=== PATIENT | male | born 1980 | race Caucasian/White ===

== ENCOUNTER → 2017-01-25 | Outpatient (CLI) | payer BC ==
[2014-02-17 16:45] VITALS: BP 156/100
--- NOTE | 2017-01-25 12:08 | RAD ---
Chest radiograph 01/25/2017 1:22 PM Indication: Positive tuberculosis skin test Comparison: None available Technique: PA and lateral views of the chest are provided. Findings: Cardiomediastinal silhouette is within normal limits. No pleural effusions, pulmonary vascular congestion or pneumothorax. The lungs are clear. Osseous structures are normal. Impression: No acute cardiopulmonary process.
== END | disposition home or self-care (01) ==
LOC: RAD 11:06
PROVIDERS: ATTEND Nurse Practitioner Family
DX: R76.11 Nonspecific reaction to tuberculin skin test without active tuberculosis (principal)
CPT/HCPCS: 71020

== ENCOUNTER 2017-12-21 14:38 | Emergency (ER) | payer BC ==
[2014-02-17 16:45] VITALS: BP 156/100
[~2017-12-21] VITALS: Ht 180.3 cm; Wt 99.8 kg
[2017-12-21] MEDS ORDERED: HYDROcodone/APAP 5/325MG 1 TAB TABLET PO ONE (14:45)
[2017-12-21] MEDS ORDERED: CEPHALEXIN 250 MG CAPSULE PO ONE (14:45)
[2017-12-21] MEDS ORDERED: DIPHTH,PERTUSS(ACELL),TET TOX 0.5 ML DISP.SYRIN. VAX IM ONE (14:45)
[2017-12-21] MEDS ORDERED: BUPIVAC MPF-EPI 0.5%-1:200000 30 ML VIAL. INJ ONE (14:45)
--- NOTE | 2017-12-21 15:03 | RAD ---
Left little finger, 3 views, 12/21/2017: HISTORY: Amputation type injury The soft tissues at the tip of the index finger have been amputated. A small portion of the terminal tuft of the distal phalanx is also absent. No other fracture or dislocation is evident. IMPRESSION: Amputation injury at the tip of the index finger involving a portion of the terminal tuft. Electronically signed by: Tor Gómez MD (12/21/2017 2:59 PM) [facility]
[2017-12-21] MEDS ORDERED: TRAM50TA PO (15:39)
[2017-12-21] MEDS ORDERED: CEPH-264 PO (15:39)
--- NOTE | 2017-12-21 15:39 | PHYS DOC ---
Past History Past Medical History: Hypertension Past Surgical History: No Surgical History Alcohol Use: None Drug Use: None Adult General Chief Complaint Chief Complaint: FINGER INJURY HPI HPI Patient is a [age] year old [sex] who presents with [] Review of Systems Review of Systems Constitutional: Denies fever or chills [] Eyes: Denies change in visual acuity, redness, or eye pain [] HENT: Denies nasal congestion or sore throat [] Respiratory: Denies cough or shortness of breath [] Cardiovascular: No additional information not addressed in HPI [] GI: Denies abdominal pain, nausea, vomiting, bloody stools or diarrhea [] : Denies dysuria or hematuria [] Musculoskeletal: Denies back pain or joint pain [] Integument: Denies rash or skin lesions [] Neurologic: Denies headache, focal weakness or sensory changes [] Endocrine: Denies polyuria or polydipsia [] All other systems were reviewed and found to be within normal limits, except as documented in this note. Current Medications Current Medications Current Medications Medications (Trade) Dose Ordered Sig/Anmol Start Time Stop Time Status Last Admin Dose Admin Acetaminophen/ Hydrocodone Bitart (Lortab 5/325) 1 tab 1X ONCE 12/21/17 14:45 12/21/17 14:48 DC Bacitracin (Bacitracin Topical Pkt) 1 pkt DAILY 12/22/17 09:00 Bupivacaine HCl/ Epinephrine Bitart (Sensorcain-Mpf Epi 0.5%-1:[id number]) 30 ml 1X ONCE 12/21/17 14:45 12/21/17 14:46 DC 12/21/17 14:45 30 ML Cephalexin HCl (Keflex) 500 mg 1X ONCE 12/21/17 14:45 12/21/17 14:46 DC 12/21/17 14:58 500 MG Diphtheria/ Tetanus/Acell Pertussis (Boostrix) 0.5 ml ONCE ONCE 12/21/17 14:45 12/21/17 14:46 DC 12/21/17 15:02 0.5 ML Allergies Allergies Allergies Coded Allergies Type Severity Reaction Last Updated Verified No Known Drug Allergies 02/17/14 No Physical Exam Physical Exam Constitutional: Well developed, well nourished, no acute distress, non-toxic appearance. [] HENT: Normocephalic, atraumatic, bilateral external ears normal, oropharynx moist, no oral exudates, nose normal. [] Eyes: PERRLA, EOMI, conjunctiva normal, no discharge. [] Neck: Normal range of motion, no tenderness, supple, no stridor. [] Cardiovascular:Heart rate regular rhythm, no murmur [] Lungs & Thorax: Bilateral breath sounds clear to auscultation [] Abdomen: Bowel sounds normal, soft, no tenderness, no masses, no pulsatile masses. [] Skin: Warm, dry, no erythema, no rash. [] Back: No tenderness, no CVA tenderness. [] Extremities: No tenderness, no cyanosis, no clubbing, ROM intact, no edema. [] Neurologic: Alert and oriented X 3, normal motor function, normal sensory function, no focal deficits noted. [] Psychologic: Affect normal, judgement normal, mood normal. [] Current Patient Data Vital Signs Vital Signs Date Time Temp Pulse Resp B/P (MAP) Pulse Ox O2 Delivery O2 Flow Rate FiO2 12/21/17 14:39 100 Room Air EKG EKG [] Radiology/Procedures Radiology/Procedures [] Course & Med Decision Making Course & Med Decision Making Pertinent Labs and Imaging studies reviewed. (See chart for details) [] Dragon Disclaimer Dragon Disclaimer This electronic medical record was generated, in whole or in part, using a voice recognition dictation system. Departure Departure: Impression: Primary Impression: Amputation of finger tip Disposition: 01 HOME, SELF-CARE Condition: STABLE Referrals: GENTRY GRACE (PCP) Patient Instructions: Fingertip Injuries and Amputations Additional Instructions: Please call Dr. Bates or Dr. Saleh (orthopedics) for appointment tomorrow Friday12/22/17 at . Scripts Tramadol Hcl (TRAMADOL HCL) 50 Mg Tablet 50 MG PO PRN Q6HRS PRN for PAIN, #14 TAB Prov: DAVON PASCAL DO 12/21/17 Cephalexin (KEFLEX) 500 Mg Capsule 1 CAP PO QID for 10 Days, #40 CAP Prov: DAVON PASCAL DO 12/21/17 Problem Qualifiers Primary Impression: Amputation of finger tip Encounter type: initial encounter Qualified Codes: S68.129A - Partial traumatic metacarpophalangeal amputation of unspecified finger, initial encounter DAVON PASCAL DO Dec 21, 2017 15:39
--- NOTE | 2017-12-21 16:11 | NUR ---
This nurse cleansed a wound to the fourth digit of the left hand. A clean dressing with a metal finger splint was applied. The patient sustained a partial amputation to the fourth digit of the left hand.
[2017-12-22] MEDS ORDERED: BACITRACIN ZINC TOPICAL OINT PACKET. TP SCH (09:00)
== END 2017-12-21 16:11 | disposition home or self-care (01) ==
LOC: ER 14:38
DX: S68.121A Partial traumatic metacarpophalangeal amputation of left index finger, initial encounter (principal); I10 Essential (primary) hypertension; X58.XXXA Exposure to other specified factors, initial encounter; Y93.89 Activity, other specified; Y92.89 Other specified places as the place of occurrence of the external cause; Y99.8 Other external cause status
CPT/HCPCS: 73140; 90471; 90715; 96372; 99284; J3490